=== PATIENT | female | born 1955 | race Caucasian/White ===

== ENCOUNTER 2017-02-05 01:48 | Emergency (ER) | payer BC, OTHER ==
[2017-02-05 01:59] VITALS: BP 161/73
--- OUTSIDE RECORDS SUMMARY | 2017-02-05 02:03 | XMS REPORT | Continuity of Care Document ---
:1955 Author Organization [facility] [place] [address] Care Team Providers Name Role Phone Abe Easley Primary Care Provider [phone] Source Comments This disclosure is being made pursuant to the [place] program and maynot contain all information available regarding this patient.[facility] Active Allergies and Adverse Reactions Allergen Noted Date Severity Reactions Comments Celebrex 12/07/2016 Other (See Comments) Mild pain/cramping Codeine 02/21/2014 Low Rash Hydrocodone-Acetaminophen 02/21/2014 High Swelling Penicillins 02/21/2014 Low Rash Current Medications Be aware that medications may not be up to date as of this document. Alwaysverify current medications with the patient. Prescription Sig. Disp. Refills Start Date End Date Status vitamin D, One capsule 12 capsule 1 10/28/2014 Active Ergocalciferol, 26628 monthly UNITS capsule Cholecalciferol Take 10,000 Active (VITAMIN D3) 37243 Units by units capsule mouth once a week. meloxicam (MOBIC) 7.5 Take 7.5 mg Active MG tablet by mouth daily. atorvastatin Take 1 tablet 90 tablet 0 01/29/2017 Active (LIPITOR) 40 MG by mouth tablet daily. Empagliflozin-Linagli Take 1 tablet 90 tablet 0 01/29/2017 Active ptin (GLYXAMBI) 10-5 by mouth MG TABS daily. levothyroxine Take 1 tablet 90 tablet 0 01/29/2017 Active (SYNTHROID, by mouth LEVOTHROID) 100 MCG every morning tablet on an empty stomach. olmesartan (BENICAR) Take 1 tablet 90 tablet 0 01/29/2017 Active 20 MG tablet by mouth daily. LORazepam (ATIVAN) Take 1 tablet 180 tablet 0 01/29/2017 Active 0.5 MG tablet (0.5 mg total) by mouth 2 (two) times daily as needed. triamterene-hydrochlo Take 1 tablet 90 tablet 0 01/29/2017 Active rothiazide by mouth (MAXZIDE-25) 37.5-25 daily. MG per tablet levothyroxine Take 1 tablet Discontinued (SYNTHROID) 112 MCG by mouth 7 tablet daily. LORazepam (ATIVAN) Take 1 tablet Discontinued 0.5 MG tablet by mouth 2 7 (two) times daily as needed. olmesartan (BENICAR) Take 1 tablet Discontinued 20 MG tablet by mouth 7 daily. triamterene-hydrochlo Take 1 tablet Discontinued rothiazide by mouth 7 (MAXZIDE-25) 37.5-25 daily. MG per tablet levothyroxine Take 100 mcg Discontinued (SYNTHROID, by mouth 7 LEVOTHROID) 100 MCG every morning tablet on an empty stomach. atorvastatin Take 40 mg by Discontinued (LIPITOR) 40 MG mouth daily. 7 tablet Empagliflozin-Linagli Take 1 tablet Discontinued ptin (GLYXAMBI) 10-5 by mouth 7 MG TABS daily. ciprofloxacin (CIPRO) Take 1 tablet 10 tablet 0 01/16/2017 500 MG tablet by mouth 2 7 (two) times daily. Active Problems Problem Noted Date Essential hypertension 01/29/2017 Urinary tract infection without hematuria 01/23/2017 Type 2 diabetes mellitus with diabetic polyneuropathy, without long-term 01/23 current use of insulin ([facility]) Type 2 diabetes mellitus with hyperglycemia, without long-term current use 11/2016 of insulin ([facility]) Glycosuria 01/23/2017 Proteinuria 01/23/2017 Dysuria 01/23/2017 Type 2 diabetes mellitus without complication ([facility]) 12/07/2016 Peptic ulcer disease 12/07/2016 BPPV (benign paroxysmal positional vertigo) 12/07/2016 Osteopenia 05/12/2014 Hypercalcemia 03/03/2014 Breast cancer ([facility]) 03/03/2014 Resolved Problems Problem Noted Date Resolved Date Hypertensive heart disease without heart failure 12/07/2016 01/29/2017 Most Recent Encounters Date Type Specialty Providers Description 01/29/2017 Office Visit Family Medicine Abe Easley, Essential hypertension DO (Primary Dx); Type 2 diabetes mellitus without complication, without long-term current use of insulin (HCC); Acute cystitis without hematuria; Glycosuria; Proteinuria, unspecified type 01/16/2017 Office Visit Family Medicine Abe Easley, Urinary tract infection DO without hematuria, site unspecified (Primary Dx); Type 2 diabetes mellitus with diabetic polyneuropathy, without long-term current use of insulin (HCC); Type 2 diabetes mellitus with hyperglycemia, without long-term current use of insulin (HCC); Glycosuria; Proteinuria, unspecified type; Dysuria 12/07/2016 Abstract Family Medicine Melissa Martinez RN Social History Tobacco Use Types Packs/Day Years Used Date Never Smoker Smokeless Tobacco: Never Used Alcohol Use Drinks/Week oz/Week Comments No Alcoholic Drinks/day: ALCOHOL USE: NON-DRINKER Last Filed Vital Signs Vital Sign Reading Time Taken Blood Pressure 120/75 01/29/2017 3:50 PM CDT Pulse 90 01/29/2017 3:50 PM CDT Temperature 36.4 C (97.6 F) 01/29/2017 3:50 PM CDT Respiratory Rate 17 01/29/2017 3:50 PM CDT Height 1.6 m (5' 3") 01/29/2017 3:50 PM CDT Weight 72.576 kg (160 lb) 01/29/2017 3:50 PM CDT Body Mass Index 28.35 01/29/2017 3:50 PM CDT Oxygen Saturation 97% 01/29/2017 3:50 PM CDT Plan of Care Patient Goal Type Goal Blood Pressure Blood Pressure below 140/90 Result Component HEMOGLOBIN A1C < 7.0 Date Type Specialty Providers Description 04/23/2017 Appointment Family Medicine Abe Easley Q, DO [address] [place] [address] [phone] (Fax) Health Maintenance Due Date Last Done Comments Lab-Lipids 1955 Eye (Ophthalmology) Exam 1964 Foot Exam 1964 Lab-Urine Microalbumin 1964 Hepatitis C Screening 1972 Pneumococcal Medium Risk 19-64 yo (1 of 1 - PPSV23) 1973 Tetanus/Pertussis (1 - Tdap) 1973 Pap Smear 1975 Well Adult Visit 2004 Zoster Vaccine 60+ 2014 Mammogram 09/01/2016 09/01/2014 Influenza Immunization (#1) 2017 LAB-HgA1C 08/01/2017 01/29/2017 Colonoscopy 11/24/2018 11/24/2008 Results from Last 3 Months Comprehensive metabolic panel (01/29/2017 4:03 PM) Component Value Range Glucose 113(H)Comment: 60-100 mg/dL Fasting Plasma Glucose (FPG)<100 MG/DL Impaired Fasting Glucose (IFG) 100-125 MG/DL Provisional Diagnosis of Diabetes Mellitus > dv=238 MG/DL (Diagnosis Must Be Confirmed) BUN, Blood 22(H) 10-20 mg/dL Creatinine 0.8 0.6-1.2 mg/dL Glomerular Filtration Rate 84 >80 mL/min/1.73mm2 Estimate Glomerlular Filtration Rate 97Comment:The estimated GFR has >80 mL/min/ 1.73mm2 Estimate- not been validated for women or patients with serious comorbid conditions, or with extremes of body size, muscle mass, or nutritional status. Calcium 9.9 8.4-10.2 mg/dL Sodium 137 136-145 mmol/L Potassium 3.4(L) 3.5-4.6 mmol/L Chloride 102 99-111 mmol/L CO2 22.7 21.0-32.0 mmol/L Albumin 4.8 3.5-5.0 g/dL Total Protein 7.7 6.1-8.0 g/dL Bilirubin Total 1.1 0.2-1.2 mg/dL Alkaline Phosphatase 71 40-150 U/L AST 26 5-34 U/L ALT 28 0-55 u/L Narrative Testing performed at [facility], [address] [place] [address].Acls Nurse Dante Henning MD Hemoglobin A1c (01/29/2017 4:03 PM) Component Value Range Hemoglobin A1C 5.8Comment: % Nondiabetic Patient:4.0 - 6.0 % Diabetic Patient: < 7.0 % Clinical correlation is essential Estimated Avg Glucose 120 mg/dL Narrative Testing performed at [facility], [address] [place] [address].Acls Nurse Dante Henning MD POCT UA (01/29/2017)Only the most recent of2 resultswithin the time period is included. Component Value Range Color, UA yellow colorless, yellow Clarity or appearance, UA clear clear Glucose, UA 1000+(A) negative mg/dL Bilirubin, UA small (1+)(A) negative, trace Ketones, UA large (3+)(A) negative, trace Specific [place],UA POC 1.020 1.003-1.029 Blood, UA large (3+)(A) negative pH, UA POC 5 5.0-8.5 Protein, UA POC trace(A) negative Urobilinogen, UA POC 0.20 0.20-1.00 mg/dL Nitrite POC Negative Negative, Indeterminate Leukocytes, UA negative negative, trace CBC auto differential (01/16/2017 2:59 PM) Component Value Range WBC 7.0 3.1-11.0 x10^3/uL RBC 4.89 4.00-5.10 x10^6/uL Hemoglobin 15.9(H) 12.5-15.3 g/dL Hematocrit 45.2 33.7-46.0 % MCV 92.4 82.0-98.0 fL MCH 32.5 27.2-33.3 pg MCHC 35.2 32.0-36.0 g/dL RDW 12.2 11.5-14.7 % SD-RDW 41.1 36.5-50.0 fL Platelets 180 150-450 x10^3/uL MPV 10.8 9.1-12.1 fL NE% 66.0 42.0-76.0 % %LYMPH 22.0 13.5-48.0 % %MONO 9.6 3.5-14.0 % % Eosinophils 1.4 0.0-7.0 % % Basophils 0.7 0.0-1.5 % Imm Gran Relative 0.3 0.0-1.0 % NE# 4.6 1.2-7.3 x10^3/uL Lymphs # 1.5 0.7-3.5 x10^3/uL [place]# 0.7 0.2-0.9 x10^3/uL Eosinophil # 0.1 0.0-0.5 x10^3/uL Baso# 0.1 0.0-0.1 x10^3/uL Imm Gran Absolute 0.02 0.00-0.10 x10^3/uL NRBC % 0.00 0.00-0.10 /100 WBC Specimen BLOOD Narrative Testing performed at [facility], [address] [place] [id number].Acls Nurse Feliz Alexandre MD POCT GLUCOSE (MANUAL) (01/16/2017) Component Value Range Glucose, POC 166(A)Comment:ap 70-99 mg/dL Insurance Payer Benefit Plan / Subscriber ID Type Phone Address Group [facility] [id number] Out of State [phone] [address] [facility] [place] [address] Home: [address] [phone] [place] [phone]
[2017-02-05] MEDS ORDERED: diphenhydrAMINE HCL 25 MG CAPSULE ONE (02:22)
[2017-02-05] MEDS ORDERED: diphenhydrAMINE HCL 25 MG CAPSULE PO ONE (02:22)
--- NOTE | 2017-02-05 02:22 | ERNOTE ---
Integumentary HPI - General Presenting Symptoms: rash Time Seen by Provider: 02/05/17 02:13 Source: patient Exam Limitations: no limitations - Immun/Allergies/Home Medications Immunizations: IMMUNIZATION HX Immunizations Up to Date Yes History of Influenza Vaccine No Hx Pneumococcal Vaccination No Allergies/Adverse Reactions: Allergies Allergy/AdvReac Type Severity Reaction Status Date / Time codeine Allergy Verified 02/05/17 01:57 hydrocodone Allergy Verified 02/05/17 01:57 Penicillins Allergy Verified 02/05/17 01:57 Home Medications: HOME MEDICATIONS Atorvastatin Calcium [Lipitor] 40 mg PO HS 02/05/17 [Last Taken Unknown] Empagliflozin/Linagliptin [Glyxambi 10 mg-5 mg Tablet] 1 each PO DAILY 02/05/17 [Last Taken Unknown] LORazepam [Ativan] 0.5 mg PO TID PRN 02/05/17 [Last Taken Unknown] Levothyroxine Sodium [Synthroid] 100 mcg PO DAILY 02/05/17 [Last Taken Unknown] Methylprednisolone [Medrol Dosepak] 4 mg PO DAILY #1 tab.ds.pk 02/05/17 [Last Taken Unknown] Olmesartan Medoxomil [Benicar] 20 mg PO DAILY 02/05/17 [Last Taken Unknown] Triamterene/Hydrochlorothiazid [Dyazide 37.5/25] 1 cap PO DAILY 02/05/17 [Last Taken Unknown] - History of Present Illness Narrative: Patient presents with a pruritic rash on her right lower leg for 2 days [place] she denies any systemic symptoms. She itches but she has not taken any medication for it. Review of Systems - Review of Systems Constitutional: Present: no symptoms reported EYE: Present: no symptoms reported ENT: Present: no symptoms reported Respiratory: Present: no symptoms reported Cardiology: Present: no symptoms reported Gastrointestinal/Abdominal: Present: no symptoms reported Genitourinary: Present: no symptoms reported Musculoskeletal: Present: no symptoms reported Skin: Present: See HPI - Patient's Past Medical History Patient History - Medical: Diabetes Type 2 Patient History - Cardiac/Respiratory: No pertinent hx, Hypertension, Hyperlipidemia Patient History - Cancer: Breast, Thyroid Patient History - Surgical Procedures: Cancer Surgery, Tubal Ligation Patient History - Other: None - Social History Living Situations: home Abuse History: No History of abuse Psych History: No pertinent hx Smoking Status: Former smoker Have you smoked in the past 12 months: No Alcohol Use: none Drug Use: none - Immunizations Immunizations Up to Date: Yes Hx Pneumococcal Vaccination: No History of Influenza Vaccine: No Physical Exam - Physical Exam General Appearance: Present: wd/wn, alert, no apparent distress Respiratory: Present: no respiratory distress, normal breath sounds, no accessory muscle use, chest nontender, lungs clear Cardiovascular/Chest: Present: regular rate, rhythm, no murmur, normal peripheral pulses Skin Exam: Present: other - is a small reddish raised area on the medial aspect of the patient's distal tibial region. Ears the patient has scratched the area she also has a couple of punctate areas in the right arm area actively scratching the lesions despite being told not to do so by this examiner. ED Progress - Vital Signs Patient's Vital Signs:: I have reviewed the patient's vital signs. Vital Signs: Vital Signs 02/05/17 01:53 Temperature 36.5 C Pulse Rate 74 Respiratory 18 Rate Blood Pressure 161/73 O2 Sat by Pulse 97 Oximetry - Progress/Reassessment Chief Complaint: Rash Plan - Plan Plan: Patient's rash appears to be contact dermatitis the exact etiology of the contact dermatitis is unknown as of yet patient will be treated with a Medrol Dosepak. Departure Clinical Impression: Contact dermatitis Qualifiers: Contact dermatitis type: unspecified Contact dermatitis trigger: unspecified trigger Qualified Code(s): L25.9 - Unspecified contact dermatitis, unspecified cause - Departure Disposition: Home self-care Condition: Good Instructions: Contact Dermatitis, [id number] Prescriptions: Methylprednisolone [Medrol Dosepak] 4 mg PO DAILY #1 tab.ds.pk
== END 2017-02-05 02:26 | disposition home or self-care (01) ==
LOC: ER 01:48
DX: L25.9 Unspecified contact dermatitis, unspecified cause (principal); Z87.891 Personal history of nicotine dependence